=== PATIENT | female | born 1970 | race Caucasian/White ===

== ENCOUNTER → 2018-01-16 | Emergency (ER) | payer OTHER ==
[~2018-01-16] VITALS: Ht 157.5 cm; Wt 70.3 kg
[~2018-01-16] MED LIST: NORFLEX100MG PO; PNEU16DI2; SYNTHROID50 MCG
== END | disposition home or self-care (01) ==
LOC: ER 23:24
DX: M54.89 Other dorsalgia (principal)

== ENCOUNTER 2018-05-21 21:03 | Emergency (ER) | payer OTHER ==
[~2018-05-21] VITALS: Ht 162.6 cm; Wt 74.8 kg
[2018-05-21] MEDS ORDERED: FERREX 150 FOR1 EAC1 (21:20)
[2018-05-21] MEDS ORDERED: DIALYVITE 8000.8 M1 (21:20)
[2018-05-22] MEDS ORDERED: MECLIZINE HCL25 MG PO (01:17)
[2018-05-22] MEDS ORDERED: DOLOGESIC 500-1 EACH PO (01:25)
== END 2018-05-22 01:59 | disposition home or self-care (01) ==
LOC: ER 21:03
DX: R55 Syncope and collapse (principal)

== ENCOUNTER → 2019-11-25 | Emergency (ER) | payer OTHER ==
[~2019-11-25] VITALS: Ht 157.5 cm; Wt 71.7 kg
[~2019-11-25] MED LIST changes: +DIALYVITE 8000.8 M1; +DOLOGESIC 500-1 EACH PO; +FERREX 150 FOR1 EAC1; +MECLIZINE HCL25 MG PO; +VISTARIL25 MG
== END | disposition left against medical advice (07) ==
LOC: ER 19:41
DX: K57.32 Diverticulitis of large intestine without perforation or abscess without bleeding (principal); R10.32 Left lower quadrant pain; Z03.818 Encounter for observation for suspected exposure to other biological agents ruled out

== ENCOUNTER 2020-09-30 09:04 | Emergency (ER) | payer OTHER ==
[~2020-09-30] VITALS: Ht 160 cm; Wt 69.9 kg
[2020-09-30] MEDS ORDERED: CYCLOBENZAPRINE10 MG PO (12:02)
[2020-09-30] MEDS ORDERED: FLONASE ALLERG9.9 ML NASAL (12:02)
[2020-09-30] MEDS ORDERED: SKELAGESIC PO (12:02)
== END 2020-09-30 13:22 | disposition home or self-care (01) ==
LOC: ER 09:04
DX: S33.5XXA Sprain of ligaments of lumbar spine, initial encounter (principal); X50.9XXA Other and unspecified overexertion or strenuous movements or postures, initial encounter; Y93.89 Activity, other specified; Y92.89 Other specified places as the place of occurrence of the external cause; Y99.8 Other external cause status; M54.12 Radiculopathy, cervical region; J32.8 Other chronic sinusitis

== ENCOUNTER 2021-10-24 13:21 | Emergency (ER) | payer OTHER ==
[~2021-10-24] VITALS: Ht 157.5 cm; Wt 72.6 kg
[~2021-10-24 13:21] MED LIST changes: +CYCLOBENZAPRINE10 MG PO; +FLONASE ALLERG9.9 ML NASAL; +SKELAGESIC PO
== END 2021-10-24 21:06 | disposition home or self-care (01) ==
LOC: ER 13:21
DX: S00.93XA Contusion of unspecified part of head, initial encounter (principal); S80.01XA Contusion of right knee, initial encounter; W18.39XA Other fall on same level, initial encounter; Y93.9 Activity, unspecified; Y92.018 Other place in single-family (private) house as the place of occurrence of the external cause; Y99.9 Unspecified external cause status; Z88.6 Allergy status to analgesic agent

== ENCOUNTER 2023-05-01 15:21 | Emergency (ER) | payer OTHER ==
[~2023-05-01] VITALS: Ht 165.1 cm; Wt 65.8 kg
[2023-05-01 18:03] LABS: HEMATOCRIT 43.3 % (36.0-45.00); HEMOGLOBIN 14.9 g/dL (12.0-15.00); MEAN CELL VOLUME 89.2 fL (80.00-100.00); MEAN CORPUSCULAR HEMOGLOBIN 30.8 pg (27.00-32.0); MEAN CORPUSCULAR HGB CONC 34.5 g/dl (32.0-36.0); PLATELET COUNT 328 K/uL (150-450); RED BLOOD COUNT 4.85 M/uL (4.00-6.00); RED CELL DISTRIBUTION WIDTH 13.3 % (11.5-14.5)
[2023-05-01 18:27] LABS: INR 1.02; PARTIAL THROMBOPLASTIN TIME 27.2 SECONDS (22.0-34.0); PROTHROMBIN TIME 10.7 SECONDS (9.0-11.5)
[2023-05-01 18:39] LABS: ALBUMIN 3.4 gm/dL (3.4-5.0); BILIRUBIN TOTAL 0.74 mg/dL (0.3-1.2); CALCIUM 8.8 mg/dL (8.5-10.1); CREATININE SERUM 0.75 mg/dL (0.55-1.02); GFR 81.47; GLOBULINA 4.5 G/DL (2.4-3.5); POTASSIUM 3.61 mEq/L (3.5-5.1); TOTAL PROTEIN 7.9 gm/dL (6.4-8.2)
[2023-05-01 18:58] LABS: PH,URINE 6.5 (5.0-8.0); URINE APPEARANCE Clear; URINE BILIRRUBIN Negative (NEGATIVE); URINE BLOOD Negative; URINE COLOR Yellow; URINE GLUCOSE Negative (NEGATIVE); URINE LEUKOCYTE Negative; URINE NITRATE Negative; URINE PROTEIN Negative (NEGATIVE)
[2023-05-01 19:00] LABS: URINE BACTERIA 132.2 uL (0.0-1933); URINE EPITHELIAL CELLS 6.4 uL (0.0-38.8)
[2023-05-01 19:04] LABS: URINE WBC 1.2 uL (0.0-23.2)
== END 2023-05-01 20:54 | disposition home or self-care (01) ==
LOC: ER 15:22
PROVIDERS: Nurse Practitioner Family
DX: R10.11 Right upper quadrant pain (principal); R10.9 Unspecified abdominal pain; I10 Essential (primary) hypertension; E03.8 Other specified hypothyroidism; Z88.6 Allergy status to analgesic agent

== ENCOUNTER 2024-04-22 12:04 | Emergency (ER) | payer OTHER ==
[~2024-04-22] VITALS: Ht 157.5 cm; Wt 59.0 kg
[2024-04-22] MEDS ORDERED: PROAIR RESPICL90 MCG (12:57)
[2024-04-22 12:58] VITALS: BP 132/70; O2SAT 98
[2024-04-22] MEDS ORDERED: LEVOFLOXACIN750 MG PO (12:58)
[2024-04-22] MEDS ORDERED: TRAMADOL HCL 50 MG TABLET PO STA (13:26)
[2024-04-22 14:17] LABS: HEMATOCRIT 43.5 % (36.0-45.00); HEMOGLOBIN 15.4 g/dL (12.0-15.00); MEAN CELL VOLUME 87.9 fL (80.00-100.00); MEAN CORPUSCULAR HGB CONC 35.3 g/dl (32.0-36.0); PLATELET COUNT 360 K/uL (150-450); RED BLOOD COUNT 4.95 M/uL (4.00-6.00); RED CELL DISTRIBUTION WIDTH 12.9 % (11.5-14.5)
[2024-04-22 14:35] LABS: CALCIUM 9.6 mg/dL (8.5-10.1); CREATININE SERUM 0.75 mg/dL (0.55-1.02); GFR 81.15; POTASSIUM 3.58 mEq/L (3.5-5.1)
[2024-04-22] MEDS ORDERED: CLINDAMYCIN PHOSPHATE 150 MG/ML (600mg) IV STA (14:55)
[2024-04-22] MEDS ORDERED: CEFTRIAXONE SODIUM 1,000 MG VIAL IV STA (14:56)
[2024-04-22] MEDS ORDERED: CEFTRIAXONE SODIUM 1,000 MG VIAL ONE (15:22)
[2024-04-22] MEDS ORDERED: CLINDAMYCIN PHOSPHATE 150 MG/ML (900mg) ONE (15:22)
== END 2024-04-22 18:01 | disposition home or self-care (01) ==
LOC: ER 12:06
PROVIDERS: General Practice
DX: N75.8 Other diseases of Bartholin's gland (principal); Z88.6 Allergy status to analgesic agent; J45.909 Unspecified asthma, uncomplicated; E03.8 Other specified hypothyroidism
CPT/HCPCS: 36415; 96365; 99282; J0696; J3490